=== PATIENT | female | born 1990 | race Caucasian/White ===

== ENCOUNTER 2019-05-22 10:31 | Emergency (ER) | payer MEDICAID ==
[~2019-05-22] VITALS: Ht 170.2 cm; Wt 50.0 kg
[2019-05-22 14:00] VITALS: BP 117/75
== END 2019-05-22 14:00 | disposition home or self-care (01) ==
LOC: ER 10:31
DX: Z00.00 Encounter for general adult medical examination without abnormal findings (principal); F20.9 Schizophrenia, unspecified
CPT/HCPCS: 99283